=== PATIENT | male | born 1950 | race Caucasian/White ===

== ENCOUNTER 2017-06-27 14:02 | Outpatient (CLI) | payer MEDICARE ==
--- NOTE | 2017-06-27 15:50 | RAD ---
CHEST TWO VIEWS: History: Pneumothorax on left. Comparison: 06-19-17 FINDINGS: Heart size and mediastinum are within normal limits. Left sided pneumothorax appears to have resolved . I do not see any definite residual pneumothorax. IMPRESSION: Resolution of the left sided pneumothorax. POS: [facility]
== END 2017-06-27 14:03 | disposition home or self-care (01) ==
LOC: RAD 14:02
PROVIDERS: ATTEND Physician Assistant
DX: J93.9 Pneumothorax, unspecified (principal)
CPT/HCPCS: 71020

== ENCOUNTER 2020-03-12 07:31 | Inpatient (IN) | payer MEDICARE, OTHER ==
--- NOTE | 2020-03-12 08:14 | CT ---
EXAM: CT brain without contrast HISTORY: Fall and hit head COMPARISON: None TECHNIQUE: Multiple contiguous axial images were obtained and a CT of the brain without contrast. FINDINGS: There is an area of hyperdensity near the vertex in the right frontal lobe measuring 1.2 cm in size. There is no evidence of hydrocephalus. The calvarium and overlying soft tissues are unremarkable. The visualized paranasal sinuses and masto id air cells are well aerated. IMPRESSION: Small hyperdense region in the frontal lobe near the vertex could represent a small area of parenchymal or subarachnoid hemorrhage. A mass in this location is also a possibility. A follow-up CT in 4 to 6 hours is recommended to ensure stability. Dr. Villanueva notified of findings at 8:11 AM on 03/12/2020
--- NOTE | 2020-03-12 08:33 | RAD ---
XR Hip Lt 2-3 View HISTORY: Injury, left hip pain FINDINGS: No fracture or dislocation is identified.
--- NOTE | 2020-03-12 08:33 | RAD ---
XR Elbow Lt 4 View STANDARD HISTORY: Injury, left elbow pain FINDINGS: No fracture or dislocation is identified.
--- NOTE | 2020-03-12 08:35 | RAD ---
EXAM: Left rib series with chest x-ray HISTORY: Rib pain COMPARISON: None FINDINGS: Single view of the chest shows a normal sized cardiomediastinal silhouette. There is no brenda dence of consolidation, mass, or pleural effusion. Multiple views of the left ribs a minimally displaced left seventh rib fracture. Air is seen in the c hest wall adjacent to this fracture. There is a questionable left apical pneumothorax seen on one of the views. This could be artifactual. IMPRESSION: 1. Left seventh rib fracture with questionable tiny pneumothorax. A repeat chest x-ray in 4 to 6 hour s is recommended. 2. No evidence of acute cardiopulmonary disease.
[2020-03-12] MEDS ORDERED: Adacel (T-DAP) 0.5 ML SYRINGE ONE (08:50)
[2020-03-12] MEDS ORDERED: Acetaminophen 500 MG TAB ONE (12:00)
[2020-03-12 12:06] LABS: #Basophils 0.1 thou/uL (0.0-0.2); #Lymphocytes 0.8 thou/uL (1.20-3.40); #Monocytes 0.8 thou/uL (0.11-0.59); %Basophils 0.4 % (0.0-1.0); %Eosinophils 0.2 % (0.0-10.0); %Lymphocytes 5.6 % (21.0-51.0); %Monocytes 5.6 % (0.0-10.0); %Neutrophils 88.3 % (42.0-75.0); Hemoglobin 15.6 g/dL (14.0-18.0); Mean Corpuscular HGB CONC 32.9 g/dL (32.0-36.0); Mean Corpuscular Hemoglobin 31.3 pg (27.0-31.0); Mean Corpuscular Volume 95.2 fL (78.0-98.0); Mean Platelet Volume 9.4 fL (7.4-10.4); Platelet Count 227 thou/uL (130-400); RBC Distribution Width 11.7 % (11.5-14.5); Red Blood Cell (RBC) Count 4.99 mill/uL (4.70-6.10); White Blood Cell (WBC) Count 13.6 thou/uL (4.8-10.8)
[2020-03-12] MEDS ORDERED: Gabapentin 300 MG CAP PO SCH (12:15)
[2020-03-12 12:29] LABS: ALT (SGPT) 20 U/L (8-55); AST (SGOT) 24 U/L (5-34); Albumin 4.5 g/dL (3.4-4.8); Alkaline Phosphatase 72 U/L (40-110); Anion Gap 12 mmol/L (10-20); BUN (Urea Nitrogen) 18 mg/dL (8.4-25.7); Bilirubin, Total 0.7 mg/dL (0.2-1.2); Calc. Creatinine Clearance 0 mL/min (70-130); Calcium 9.5 mg/dL (7.8-10.44); Carbon Dioxide 28 mmol/L (23-31); Chloride 103 mmol/L (98-107); Estimated GFR-MDRD 87; Globulin 2.8 g/dL (2.4-3.5); Glucose 112 mg/dL (80-115); Magnesium 1.8 mg/dL (1.6-2.6); Protein, Total 7.3 g/dL (5.8-8.1); Sodium 139 mmol/L (136-145)
--- NOTE | 2020-03-12 12:32 | RAD ---
Exam: Single view of the pelvis HISTORY: Pelvic and left hip pain COMPARISON: None FINDINGS: A single view the pelvis shows no evidence of acute fracture or dislocation. No degenerativ e changes seen in either hip. IMPRESSION: No evidence of acute osseous abnormality.
--- NOTE | 2020-03-12 13:13 | MRI ---
MRI BRAIN WITH AND WITHOUT CONTRAST: DATE: 03/12/2020 HISTORY: 69-year-old male with brain lesion found on noncontrast brain CT earlier today status post head traum a from fall. COMPARISON: The CT earlier today. No prior MRI. TECHNIQUE: Multiplanar, multisequence MRI of the brain performed pre- and post-IV injection of gadolinium based contrast agent. FINDINGS: Corresponding to the lesion found on the CT, there is an approximately 1.5 x 1.7 x 1.7 cm intra-axial lesion in the right parietal lagos radiata and centrum semiovale. It has a complete hemosiderin rim. It has a popcorn appearance with T2 hyperintensity with innumerable septations. There is heterog eneous enhancement. Both methemoglobin and hemosiderin are present. This is a cavernoma. Abutting its medial and inferior aspect, there is a small enhancing blush of small abnormal blood vessels, con sistent with DVA, which is often associated with cavernomas. Associated with this DVA in the right paramedian cerebrum, abutting the posterior interhemispheric fissure and almost abutting the splenium of corpus callosum, there is a second, approximately 7 cm focus of hemosiderin stain, without T2 shortening. (Prior hemorrhage of a DVA can be seen, although it is not common). Ventricles are normal in size and configuration. No dural venous sinus thrombosis. No restricted diff usion, obstructive hydrocephalus, mass effect, midline shift, extra-axial fluid collection, or acute intra-axial hemorrhage. Scattered few small and tiny foci of T2 prolongation in the cerebrum consistent with mild chronic isc hemic white matter changes due to microvascular atherosclerosis. 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 3) no acute intracranial findings. No malignant neoplasm.
--- NOTE | 2020-03-12 13:55 | RAD ---
XR Chest 1 View Portable HISTORY: Fall, chest pain COMPARISON: None FINDINGS: The heart size is normal. The lungs are well expanded without focal areas of consolidation, pneumothorax or pleural effusions. There are questionable fractures involving the left seventh and eighth ribs.
[2020-03-12] MEDS ORDERED: Ondansetron PF 4 MG/2 ML Vial IVP PRN (14:29)
[2020-03-12] MEDS ORDERED: Ondansetron ODT 4 MG TAB PO PRN (14:29)
[2020-03-12] MEDS ORDERED: hydrALAZINE 20 MG/ML VIAL SLOW IVP PRN (14:29)
[2020-03-12] MEDS ORDERED: Dextrose 50% Abboject 50 ML SYRINGE SLOW IVP PRN (14:29)
[2020-03-12] MEDS ORDERED: Dextrose 5% in Water 1,000 ML IV PRN (14:29)
[2020-03-12] MEDS ORDERED: Ibuprofen 600 MG TAB PO PRN (14:35)
[2020-03-12] MEDS ORDERED: Cyclobenzaprine 10 MG TAB PO PRN (14:35)
[2020-03-12] MEDS ORDERED: traMADol HCl 50 MG TAB PO PRN (14:35)
[2020-03-12] MEDS ORDERED: Magnesium 2 GM/50 ML 2 GM in Premix Bag 1 BAG IVPB SCH ×2 (14:45→17:30)
--- NOTE | 2020-03-12 16:22 | HP ---
REQUESTING ER PHYSICIAN: Dr. Villanueva. CONSULTS: Neurosurgery, Dr. Rayo. CHIEF COMPLAINT: Mechanical fall, left side pain. HISTORY OF PRESENT ILLNESS: This is a 69-year-old gentleman, who reports ambulating this morning and he caught the leg of a chair causing him to fall, landing on his left hip and left side. The patient did state he hit his head, but had no loss of consciousness. The patient had no obvious head deformity. The patient denies having any chest pain, weakness, dizziness, or shortness of breath prior to falling. The patient denies any recent illnesses such as cough, fever, or chills. The patient was transported via ambulance to the emergency room and worked up for injuries. The patient's vital signs were stable in the emergency room. The patient was found to have initially an isolated left rib fracture and a small pneumothorax. Repeat chest x-ray showed a mild increase in the pneumo and seventh and eight rib fractures. Trauma Services was asked to admit the patient for observation and pain control. REVIEW OF SYSTEMS: A 10-point review of systems is negative unless otherwise indicated in the above HPI. ALLERGIES: NO KNOWN DRUG ALLERGIES. MEDICATIONS: Denies. PAST MEDICAL HISTORY: Denies. SURGICAL HISTORY: Appendectomy, TURP, thyroid cyst removal, nasal septal surgery. SOCIAL HISTORY: The patient lives with his at home, reports an 8-year history of tobacco use in the 70s. Denies illicit drug use, denies alcohol use. PHYSICAL EXAMINATION: VITAL SIGNS: Blood pressure 116/70, pulse 80, respirations 16, temperature 97.9 , SpO2 of 99% on room air. GENERAL: Well-appearing elderly male, awake, alert, in no distress. HEENT: Head is atraumatic and normocephalic. Pupils are equal bilateral. Midface, stable. Mucous membranes are moist. NECK: Trachea is midline. No cervical spine tenderness. Normal range of motion of neck. RESPIRATORY: Equal chest rise and fall. Respirations are even and nonlabored. Slightly diminished breath sounds on the left lower lobe. Left-sided chest tenderness. CARDIAC: Regular rate, regular rhythm. No murmurs. No pedal edema. ABDOMEN: Soft, nontender, nondistended. EXTREMITIES: Tenderness to palpation, left hip with ecchymosis. Moves all extremities. No focal deficits. Neurovascularly intact x4. Abrasion to the left elbow. NEUROLOGIC: No focal deficits. GCS 15. LABORATORY DATA: WBC 13.6, RBC 4.99, hemoglobin 15.6, hematocrit 47.5, platelets 227. Sodium 139, potassium 4.0, chloride 103, BUN 18, creatinine 0.87, estimated GFR 87, glucose 112, calcium 9.5, magnesium 1.8, total bilirubin 0.7, AST 24, ALT 20, alkaline phos 72. Troponin-I 0.013. Albumin 4.5. DIAGNOSTIC STUDIES: Brain CT, impression, small hyperdense region in the frontal lobe near the vertex that could be a small area of parenchymal or subarachnoid hemorrhage. A mass in this location is also a possibility. Follow up CT in 4 to 6 hours is recommended to ensure stability. ER physician spoke with Neurosurgery and recommended MRI. Elbow x-ray, left, no fracture or dislocation identified. Left hip x-ray, impression, no fracture or dislocation is identified. Ribs with chest x-ray, impression, left seventh rib fracture with questionable tiny pneumothorax. No evidence of acute cardiopulmonary process. 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 Associated DVA (developmental venous anomaly) adjacent to it. There are no acute intracranial changes. No malignant neoplasm. Pelvis x-ray, impression, no evidence of acute osseous abnormality. Repeat chest x-ray, heart size is normal. Lungs are well expanded without focal areas of consolidation, pneumothorax or pleural effusions. There are questionable fractures involving the seventh and eighth ribs. IMPRESSION: 1. Status post mechanical fall from standing. 2. Left seventh and eighth rib fractures. 3. Left tiny pneumothorax. 4. Left elbow contusion. 5. Acute traumatic pain secondary to rib fractures. 6. Left hip contusion. PLAN: Place the patient on observation status. Pain management and aggressive pulmonary toilet. The patient is to ambulate frequently. We will repeat labs and a chest x-ray in the morning or a chest x-ray sooner if the patient develops any shortness of breath or tachycardia. Most likely, the patient's pain is controlled and pneumothorax is unchanged. The patient will be discharged to home tomorrow. The plan was discussed with Dr. Piña, who agrees. The plan was discussed with the patient, who agrees. Job ID: [id number] [facility]
[2020-03-12] MEDS: Gabapentin 300 MG CAP PO SCH ×2 (17:25→20:13)
[2020-03-12] MEDS: Acetaminophen 500 MG TAB PO SCH (17:49)
[2020-03-12] MEDS: Ibuprofen 600 MG TAB PO SCH (20:13)
[2020-03-12 20:49] VITALS: BMI 20.2
[2020-03-13] MEDS: Acetaminophen 500 MG TAB PO SCH ×5 (02:04→22:29)
[2020-03-13 06:20] LABS: Mean Corpuscular HGB CONC 32.3 g/dL (32.0-36.0); Mean Corpuscular Volume 95.9 fL (78.0-98.0); Mean Platelet Volume 9.2 fL (7.4-10.4); Platelet Count 186 thou/uL (130-400); RBC Distribution Width 11.7 % (11.5-14.5); Red Blood Cell (RBC) Count 4.52 mill/uL (4.70-6.10); White Blood Cell (WBC) Count 7.6 thou/uL (4.8-10.8)
[2020-03-13 06:39] LABS: Anion Gap 8 mmol/L (10-20); BUN (Urea Nitrogen) 11 mg/dL (8.4-25.7); Calc. Creatinine Clearance 69 mL/min (70-130); Calcium 8.5 mg/dL (7.8-10.44); Carbon Dioxide 27 mmol/L (23-31); Chloride 104 mmol/L (98-107); Estimated GFR-MDRD Greater than 90; Glucose 92 mg/dL (80-115); Magnesium 2.1 mg/dL (1.6-2.6); Phosphorus 2.3 mg/dL (2.3-4.7); Potassium 3.9 mmol/L (3.5-5.1); Sodium 135 mmol/L (136-145)
[2020-03-13] MEDS: Ibuprofen 600 MG TAB PO SCH ×3 (07:35→22:29)
--- NOTE | 2020-03-13 08:46 | RAD ---
PORTABLE CHEST: 1 VIEW: DAET: 03/13/2020. TIME: 5:17 AM. HISTORY: Rib fractures and small pneumothorax. FINDINGS/IMPRESSION: Comparison is made with the exam of the previous day. A fracture of the left 7th rib is again seen. There is a small left-sided pneumothorax which appears to have increased in size since the exam of 8:14 a.m. from the previous day. A patchy opacity in th e left lung base is likely a pulmonary contusion. The heart size is normal. The right lung is clear . CODE T POS: [facility]
[2020-03-13] MEDS: Gabapentin 300 MG CAP PO SCH ×3 (09:21→22:29)
[2020-03-13] MEDS: Polyethylene Glycol 3350 17 GM Packet PO SCH (09:21)
[2020-03-13 12:12] LABS: SARS-CoV-2 MS2 Positive; SARS-CoV-2 N Gene Negative; SARS-CoV-2 S Gene Negative; SARS-CoV-2 by NAA Not Detected (NotDetected); SARS-CoV-2 orf1ab Negative
--- NOTE | 2020-03-13 14:25 | CT ---
CT Pelvis WO Con History: Pain left hip Comparison: Radiograph same day Findings: No free fluid in the pelvis. No dilated loops of bowel within the abdomen. Partial lumbarization of S1. Nondisplaced anterior column fracture left acetabulum extending into the left pubic root. No signific ant articular surface step-off of the acetabulum. The femoral head and neck are intact. The right acetabulum is intact. Right iliac wing is intact. Sacrum is intact. No SI joint widening. No pubic symphyseal widening. Impression: Nondisplaced left anterior column acetabular fracture without articular surface step-off nor free fragments within the joint. Fracture does extend into the left pubic root.
--- NOTE | 2020-03-13 18:46 | PRG ---
DATE OF SERVICE: 03/13/2020 SUBJECTIVE: The patient was seen during morning rounds. Awake, alert, in moderate distress due to left hip pain with ambulation. The patient also reports some improved pain to his left rib fractures. The patient has been using his incentive spirometer. The patient has been ambulating frequently using a walker. The patient's pelvis x-ray and hip x-ray were negative yesterday for a fracture, but the patient is still having difficulty walking with increased pain. The patient had no overnight events. The patient denies any shortness of breath. The patient is tolerating a regular diet. OBJECTIVE: VITAL SIGNS: Temperature 98.1, pulse 88, respirations 18, SpO2 of 97% on room air, blood pressure 137/96. GENERAL: Well-appearing elderly male, in moderate distress due to left hip pain. HEENT: Head is atraumatic and normocephalic. RESPIRATORY: Equal chest rise and fall. Respirations are even and nonlabored. CARDIAC: Regular rate and regular rhythm. ABDOMEN: Soft, nontender, nondistended. MUSCULOSKELETAL: Left hip pain with palpation and ambulation. EXTREMITIES: No focal deficits. Neurovascularly intact x4. NEUROLOGIC: No focal deficits. GCS 15. LABORATORY DATA: WBC 7.6, RBC 4.52, hemoglobin 14.0, hematocrit 43.3, platelets 186. Sodium 135, potassium 3.1, chloride 104, BUN 11, creatinine 0.78, estimated GFR greater than 90, glucose 92, calcium 8.5, phosphorus 2.3, magnesium 2.1. COVID-19 PCR not detected. DIAGNOSTIC DATA: Chest x-ray: Impression, left 7th rib fracture and small left-sided pneumothorax, which appears to have increased in size since yesterday. Likely left lung base pulmonary contusion. Pelvis CT: Impression, nondisplaced left anterior column acetabular fracture without articular surface step-off nor free fragments within the joint. The fracture does extend into the left pubic root. IMPRESSION: 1. Status post mechanical fall. 2. Left pneumothorax, slightly increased. 3. Acute traumatic pain, resolving. 4. Left 7th and 8th rib fractures. 5. Left elbow contusion. 6. Left acetabular fracture, nonoperative. PLAN: Continue supportive care and pain regimen. Orthopedic Surgery evaluated scans and reports the patient's acetabular fracture is nonoperative, although the patient should be nonweightbearing on his left lower extremity. Continue aggressive pulmonary toilet and the use of incentive spirometer. We will have the patient work with Physical Therapy in the morning as he is now nonweightbearing due to his fracture. We will repeat a chest x-ray in the morning to evaluate size of his left pneumothorax. The patient was examined by Dr. Piña during morning rounds. The plan was discussed with the patient who agrees. Job ID: [id number]
[2020-03-13] MEDS ORDERED: Gabapentin 300 MG CAP PO SCH (23:00)
--- NOTE | 2020-03-13 23:14 | RAD ---
EXAM: Single view of the chest HISTORY: Shortness of breath and pneumothorax COMPARISON: 03/13/2020 oh 5:17 AM FINDINGS: Single view of the chest shows a normal sized cardiomediastinal silhouette. There is a sta ble very small left apical pneumothorax. There is no evidence of consolidation, mass, or pleural effusion. Left rib fractures are again seen. IMPRESSION: Stable left pneumothorax.
--- NOTE | 2020-03-14 02:02 | CON ---
DATE OF CONSULTATION: 03/13/2020 CHIEF COMPLAINT: Left hip pain. HISTORY OF PRESENT ILLNESS: Mr. Ulloa is a 69-year-old male, who yesterday morning was walking quickly out of his house when he caught his leg on a chair. He tripped and fell forward and on his left side. He injured his left chest wall with rib fractures and he has been having left hip pain. CT scan was obtained today, which demonstrated an anterior acetabular fracture without displacement. The patient is up mobilizing with a walker. He has been nonweightbearing since this was found, but had placed weight on his leg prior to the finding. The patient is having minimal pain at this point, if he stays off his left leg. He had significant pain with weightbearing. REVIEW OF SYSTEMS: Positive for left hip pain as well as left chest wall pain. ALLERGIES: NO KNOWN DRUG ALLERGIES. MEDICATIONS: No active medications. PAST MEDICAL HISTORY: Negative. PAST SURGICAL HISTORY: Thyroid cyst removal, nasal septal surgery, appendectomy, and TURP. SOCIAL HISTORY: The patient has a remote history of tobacco use. No active tobacco, drug, or alcohol use. IMAGES: CT scan of the pelvis demonstrates a very small fracture line through the anterior aspect of the acetabulum without displacement or step-off. There is no significant articular disruption. LABORATORY STUDIES: Hemoglobin 14.0, hematocrit 43.3, and white blood cell count 7.6. PHYSICAL EXAMINATION: VITAL SIGNS: Temperature is 98.1, pulse is 108, respiratory rate is 18, oxygen saturation is 98%, and blood pressure is 128/73. GENERAL: The patient is alert. He is standing in his room with a walker. No apparent distress. LUNGS: Breathing comfortably. CARDIAC: Pulses are palpable and regular peripherally. MUSCULOSKELETAL: The patient has minimal swelling. He does have faint ecchymosis over the lateral hip. He is able to flex and extend the hip well without significant pain. He is able to stand on his walker without placing weight on his left leg. IMPRESSION: Left acetabular fracture of the anterior column without displacement. PLAN: At this point, the patient can mobilize. He has no restriction on hip range of motion, but should not place weight on the hip. It is okay if he places his foot down for balance. I do not think he will need surgical intervention for this and can continue to mobilize, but I would like to see him back in the clinic in two weeks for repeat x-ray of the hip to ensure that he has had no further displacement. I have reviewed risk of nonoperative management with him, which do include posttraumatic arthritis in the future and the need for possible total hip arthroplasty if his hip went bad. I think this is unlikely. He should have DVT prophylaxis, pain control, and physical therapy. Job ID: [id number]
--- NOTE | 2020-03-14 08:09 | RAD ---
XR Chest 1 View Portable History: Left pneumothorax Comparison: Radiograph prior day Findings: Given differences in patient rotation, left apical lateral pneumothorax is similar. Small l eft effusion. Left-sided rib fractures. Right lung relatively clear. Impression: Slight interval size increase left layering effusion/hemothorax. Pneumothorax is similar.
[2020-03-14] MEDS: Polyethylene Glycol 3350 17 GM Packet PO SCH (08:34)
[2020-03-14] MEDS: Ibuprofen 600 MG TAB PO SCH (08:34)
[2020-03-14] MEDS: Acetaminophen 500 MG TAB PO SCH ×3 (08:37→17:59)
[2020-03-14] MEDS: Gabapentin 300 MG CAP PO SCH ×2 (08:37→15:17)
--- NOTE | 2020-03-14 12:24 | PRG ---
DATE OF SERVICE: 03/14/2020 Mr. Ulloa was admitted after a fall. Head CT demonstrated hyperdense ovoid lesion in the right paramedian parieto-occipital lobe. MRI confirmed this to be a cavernous malformation with associated developmental venous anomaly. There was a small hemosiderin rim indicating hemorrhage at some point in time. However, the patient is neurologically intact and has had no issues. He does state, however, in the past he has probably had left-sided peripheral visual field deficits, and as such, I do suspect this is a symptomatic cavernoma. Surgery would not be without risk, however. The patient also broke his hip, that is being treated with nonweightbearing and conservative at this point. I will let the patient know while he is neurologically intact, he can be discharged. I have given him a card. We will arrange for followup MRI of the brain without and with contrast in 3 months and follow up in my clinic. Job ID: [id number]
[2020-03-14 15:38] VITALS: BP 129/74; TEMP 97.6
[2020-03-14] MEDS ORDERED: Aspirin 81 mg Enteric Coated Tablet PO SCH (21:00)
--- NOTE | 2020-03-16 06:00 | PQF ---
CLINICAL DOCUMENTATION CLARIFICATION FORM: Dear : Duy Rayo Date / Time: 03/16/2020 05:5 Please exercise your independent, professional judgment in responding to the clarification form. Clinical indicators are provided on the bottom of this form for your review Please check appropriate box(es): [ ] Associated Diagnosis: Subarachnoid and Parenchymal Hemorrhage Please specify if: [ ] Traumatic hemorrhage [ ] Non traumatic hemorrhage [ ] Not clinically significant radiological findings [ ] Other diagnosis [ ] Unable to determine In addition, please specify: Present on Admission (POA): [ ] Yes [ ] No [ ] Unable to determine Physician Signature: Date/Time: For continuity of documentation, please document condition throughout progress notes and discharge summary. Thank You. To be completed by CDI/Coding staff for physician review: Present Clinical Indicators - Signs / Symptoms / Labs Results and Location in Medical Record [x] Small hyperdense region in the frontal lobe near the vertex could represents a small area of parenchymal or subrachnoid hemorrhage CT of Brain [x] MRI confirmed this to be a cavernous malformation PN 03/14 [x] indicating hemorrhage at some point in time PN 03/14 [x] he is neurologically intact PN 03/14 Present Risk Factors Results and Location in Medical Record [x] 69 years old male HP 03/12 [x] s/p fall HP 03/12 [x] History of smoker ED Notes 03/14 Present Treatments Results and Location in Medical Record [x] CT of brain Collected 03/12 [x] Neurology Consult Consult 03/12 CDS/General Manager Food Signature: Olaf Stout Phone #: [phone] Date/Time: 03/16/2020 05:59 This is a permanent part of the Medical Record [facility]
--- NOTE | 2020-03-16 07:40 | DIS ---
DATE OF ADMISSION: 03/14/2020 DATE OF DISCHARGE: 03/14/2020 CONSULTS: 1. Orthopedic Surgery, Dr. Harding. 2. Neurosurgery, Dr. Rayo. PROCEDURES: None. PRIMARY DIAGNOSES: 1. Status post mechanical fall from standing, left 7th and 8th rib fractures, left pneumothorax, stable. 2. Left elbow contusion. 3. Left acetabular fracture, nonoperative. 4. Cavernoma. DISCHARGE MEDICATIONS: 1. Tylenol 1 g p.o. q.6 hours. 2. Aspirin 81 mg p.o. b.i.d. for 2 weeks for VTE prophylaxis. 3. Flexeril 5 mg p.o. 3 times a day p.r.n. muscle spasms, #30. 4. Gabapentin 300 mg p.o. 3 times a day #60 with 1 refill. 5. Protonix 40 mg p.o. daily for 30 days. 6. Tramadol 50 mg 1 to 2 tablets p.o. q.6 hours p.r.n. pain, #30. 7. Ibuprofen 600 mg p.o. q.8 hours p.r.n. pain. HISTORY OF PRESENT ILLNESS AND HOSPITAL COURSE: This is a 69-year-old gentleman , who presented to the emergency room after a ground level fall. The patient lives at home with his , he reports carrying multiple water bottles when he tripped and fell, landing on to his left side. He did hit his head, but denied any loss of consciousness. A CT of head was obtained in the emergency room and an incidental finding of a cavernoma was noted. The patient denied having any chest pain, weakness, dizziness, or shortness of breath prior to falling. He denied any recent cough, cold, fever, or chills recently. The patient's vital signs were stable in the emergency room and throughout his hospital stay. The patient was also found to have left 7th and 8th rib fractures and a small pneumothorax. The patient was given strict instructions on the use of his incentive spirometer and aggressive pulmonary toilet. The patient was able to ambulate, but had severe pain to his left hip when he ambulated. The patient had a left hip x-ray and a pelvis x-ray, which showed no fracture in the emergency room. Since the patient continued to have pain worsening with ambulation, a pelvis CT was obtained, which showed a nondisplaced anterior column fracture left acetabulum extending into the left pubic root. There was no significant articular surface step-off of the acetabulum. Orthopedic Services was consulted and determined his injury was nonoperative. The patient was then placed on nonweightbearing status to his left lower extremity. The patient continued to work with physical therapy using a walker. The patient refuses to take any narcotic pain medications. There are times that the patient also only would take either Tylenol or Motrin. The patient did have difficulty using his incentive spirometer only pulling 500. The patient was instructed the need to take scheduled medications and adding tramadol to ensure he is able to fully expand his lungs and use his incentive spirometer with a goal of 3500 mL. The patient had multiple repeat chest x-rays and his left pneumothorax was stable. On the day of discharge, the patient reported mild pain, but was able to cough deeply. He was ambulating using a walker, nonweightbearing without any difficulties. His vital signs were stable and his exam was unremarkable including cardiopulmonary and GI exam. X-rays were reviewed with Dr. Piña and the plan was also discussed with Dr. Piña. The patient was deemed stable for discharge home. The patient was given strict instructions to return to the ER if he had any increased pain, shortness of breath, or difficulty breathing. The patient voiced understanding. DISPOSITION: Stable. DISCHARGE INSTRUCTIONS: 1. Location: Home with home health. 2. Diet: Regular diet as tolerated. 3. Activity: Nonweightbearing left lower extremity, the patient is to ambulate as much as possible to prevent VTE. The patient should also take aspirin twice a day for at least 2 weeks until he follows up with Orthopedic Surgery or until he is nonweightbearing for VTE prophylaxis. 4. Followup: Follow up with Trauma Clinic Dr. Piña on March 19 at 11 o'clock. The patient is to have a chest x-ray early that morning or the day before. Follow up with Dr. Rayo, Neurosurgery in approximately 3 months to evaluate his incidental finding of a cavernoma. 5. Follow up with Orthopedic Surgery, Dr. Harding, in 2 weeks. Job ID: [id number]
== END 2020-03-14 18:55 | disposition home health service (06) | DRG 964 ==
LOC: ERS 07:31 → SJJU 14:31 → OBSVTOIN 03-14 12:19
PROVIDERS: ADMIT Surgery; ATTEND Surgery
PROC: 3E0234Z Introduction of Serum, Toxoid and Vaccine into Muscle, Percutaneous Approach (ICD-10-PCS; principal; 2020-03-12)
DX: S32.402A Unspecified fracture of left acetabulum, initial encounter for closed fracture (principal); S22.42XA Multiple fractures of ribs, left side, initial encounter for closed fracture; S27.0XXA Traumatic pneumothorax, initial encounter; Z23 Encounter for immunization; W18.30XA Fall on same level, unspecified, initial encounter; S50.02XA Contusion of left elbow, initial encounter; Z90.49 Acquired absence of other specified parts of digestive tract; Z87.891 Personal history of nicotine dependence
CPT/HCPCS: 36415; 70450; 70553; 71045; 72170; 72192; 80048; 80053; 83735; 84100; 84484; 85025; 85027; 87635; 90471; 90715; 93005; 94640; 96361; 96365; G0378; G0390; J3475; J7620; U0003

== ENCOUNTER 2020-03-18 09:59 | Outpatient (CLI) | payer MEDICARE, OTHER ==
--- NOTE | 2020-03-18 10:47 | RAD ---
CHEST 2 VIEWS: Date: 03/18/2020 HISTORY: Follow-up left-sided pneumothorax. FINDINGS: Again noted is a small left-sided pneumothorax decreasing from the prior study. Decreasing pleural an d parenchymal changes in the left base. Right lung is clear. Heart size is normal. IMPRESSION: Decreasing left-sided pneumothorax and left pleural effusion, and pleural based parenchymal changes i n the left base. No significant new process. POS: AH
== END 2020-03-18 10:00 | disposition home or self-care (01) ==
LOC: BICRAD 09:59
PROVIDERS: ATTEND Surgery
DX: S22.42XD Multiple fractures of ribs, left side, subsequent encounter for fracture with routine healing (principal); J90 Pleural effusion, not elsewhere classified; J98.4 Other disorders of lung; J93.9 Pneumothorax, unspecified
CPT/HCPCS: 71046

== ENCOUNTER 2020-06-23 08:26 | Outpatient (CLI) | payer MEDICARE, OTHER ==
--- NOTE | 2020-06-23 10:25 | MRI ---
MRI BRAIN WITH AND WITHOUT CONTRAST: DATE: 06/23/2020 HISTORY: 69-year-old male follow-up intracranial vascular malformation. Cavernoma D 18.01 COMPARISON: 03/12/2020 TECHNIQUE: Multiplanar, multisequence MRI of the brain performed pre- and post-IV injection of gadolinium based contrast agent. FINDINGS: Again noted is the approximately 1.7 x 1.7 x 1.5 cm intra-axial mass in the right paramedian parietal lobe with complete hemosiderin rim, and heterogeneously hyperintense popcorn appearance on T2 WI. It has multiple regions of intrinsic T1 shortening. It is associated with a medusa head small vascular structure with draining vein that drains into the straight sinus, representing a DVA. The gradient echo sequence demonstrates hemosiderin stain associated with this DVA, although the prior hemorrhage is very difficult to appreciate on any of the other pulse sequences. There is no vasogenic edema associated with either lesion. There are scattered tiny chronic ischemic white matter changes in the cerebral white matter. Ventricles are normal in size and configuration. There is no new hemorrhage. No restricted diffusion. No mass effect, midline shift, or extra-axial fl uid collection. No interval change overall. 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 3) no interval change overall.
[2020-06-23] MEDS ORDERED: Magnevist 469MG/ML 20 ML VIAL ONE (11:02)
== END 2020-06-23 08:27 | disposition home or self-care (01) ==
LOC: TBSIIMAG 08:26
PROVIDERS: ATTEND Surgery
DX: D18.02 Hemangioma of intracranial structures (principal); Q04.9 Congenital malformation of brain, unspecified
CPT/HCPCS: 70553; 82565; A9579

== ENCOUNTER 2021-01-27 08:17 | Outpatient (CLI) | payer MEDICARE, OTHER ==
[2021-01-27] MEDS ORDERED: Magnevist 469MG/ML 20 ML VIAL ONE (14:11)
== END 2021-01-27 08:18 | disposition home or self-care (01) ==
LOC: BICMRI 08:17
PROVIDERS: ATTEND Surgery
DX: D18.01 Hemangioma of skin and subcutaneous tissue (principal)
CPT/HCPCS: 70553; A9579

== ENCOUNTER 2021-09-02 08:38 | Outpatient (CLI) | payer MEDICARE, BC ==
[2021-09-02 09:24] LABS: Estimated GFR-MDRD - POC Greater than 90
== END 2021-09-02 08:39 | disposition home or self-care (01) ==
LOC: TBSIIMAG 08:38
PROVIDERS: ATTEND Urology
DX: R97.20 Elevated prostate specific antigen [PSA] (principal)
CPT/HCPCS: 72197; 82565

== ENCOUNTER 2025-04-23 09:42 | Outpatient (CLI) | payer MEDICARE | END 2025-04-23 09:43 | disposition home or self-care (01) | LOC: SCSMRI 09:42 | PROVIDERS: ATTEND Urology | DX: R97.20 Elevated prostate specific antigen [PSA] (principal); E34.8 Other specified endocrine disorders | CPT/HCPCS: 72197 ==

== ENCOUNTER 2025-07-04 12:39 | Outpatient (CLI) | payer MEDICARE, OTHER ==
[2025-07-04 13:45] LABS: #Basophils 0.04 10x3/uL (0.0-0.2); #Eosinophils 0.07 10x3/uL (0.0-0.7); #Monocytes 0.68 10x3/uL (0.11-0.59); #Neutrophils 4.58 10x3/uL (1.40-6.50); %Basophils 0.6 % (0.0-1.0); %Eosinophils 1.1 % (0.0-10.0); %Lymphocytes 18.6 % (21.0-51.0); %Monocytes 10.3 % (0.0-10.0); %Neutrophils 68.9 % (42.0-75.0); Hematocrit 41.3 % (42.0-52.0); Hemoglobin 13.9 g/dL (14.0-18.0); Mean Corpuscular Hemoglobin 30.7 pg (27.0-31.0); Mean Corpuscular Volume 91.2 fL (78.0-98.0); Platelet Count 216 10x3/uL (130-400); Red Blood Cell (RBC) Count 4.53 mill/uL (4.70-6.10); White Blood Cell (WBC) Count 6.63 10x3/uL (4.8-10.8)
[2025-07-04 13:50] LABS: Bacteria/HPF None Seen HPF (None Seen); Glucose, Urine (Dipstick) Normal (Negative); Leukocyte Negative Leu/uL (Negative); Protein, Urine (Dipstick) Negative (Neg-Trace); RBC/HPF 0-3 HPF (0-3); Specific Gravity, Urine 1.012 (1.002-1.036); WBC/HPF 0-3 HPF (0-3)
[2025-07-04 14:04] LABS: INR-International Normal Ratio 1.1; Prothrombin Time 13.9 sec (12.0-14.7)
[2025-07-04 14:05] LABS: Anion Gap 13 mmol/L (10-20); BUN (Urea Nitrogen) 24 mg/dL (8.4-25.7); Calc. Creatinine Clearance 0 mL/min (70-130); Calcium 9.2 mg/dL (7.8-10.44); Carbon Dioxide 25 mmol/L (23-31); Chloride 102 mmol/L (98-107); Glucose 98 mg/dL (83-110); PTT 30.8 sec (22.9-36.1); Potassium 3.8 mmol/L (3.5-5.1); Sodium 136 mmol/L (136-145)
== END 2025-07-04 12:40 | disposition home or self-care (01) ==
LOC: LABBT 12:39
PROVIDERS: ATTEND Urology
DX: Z01.818 Encounter for other preprocedural examination (principal); R97.20 Elevated prostate specific antigen [PSA]; R68.89 Other general symptoms and signs
CPT/HCPCS: 80048; 81001; 85025; 85610; 85730; 87086; 93005; 93010

== ENCOUNTER 2025-07-18 05:58 | Day surgery (SDC) | payer MEDICARE ==
[2025-07-04 12:56] VITALS: BMI 22.6
[2025-07-18] MEDS ORDERED: cefTRIAXone (ROCEPHIN) 1 GM VIAL ONE (06:44)
[2025-07-18] MEDS ORDERED: Lidocaine 1% PF 5 ML VIAL ONE (08:49)
[2025-07-18] MEDS ORDERED: Ondansetron PF 4 MG/2 ML Vial ONE (08:53)
[2025-07-18] MEDS ORDERED: fentaNYL PF 100 MCG/2 ML SYRINGE ONE (08:53)
[2025-07-18] MEDS ORDERED: PROPOFOL 200 MG/20 ML VIAL ONE (09:05)
[2025-07-18] MEDS ORDERED: PHENYLEPHRINE-NS 100 MCG/ML 10 ML SYRINGE ONE (09:05)
== END 2025-07-18 10:30 | disposition home or self-care (01) ==
LOC: SDC 05:58
PROVIDERS: ATTEND Urology
PROC: 0VB03ZX Excision of Prostate, Percutaneous Approach, Diagnostic (ICD-10-PCS; principal; 2025-07-18)
DX: C61 Malignant neoplasm of prostate (principal); R97.20 Elevated prostate specific antigen [PSA]; I10 Essential (primary) hypertension; Z90.49 Acquired absence of other specified parts of digestive tract
CPT/HCPCS: 55700; 76498; 76872; J0696; J1100; J2405; J2704; 88305; 88344; G0416